=== PATIENT | female | born 1955 | race Asian ===

== ENCOUNTER → 2020-06-06 | Outpatient (CLI) | payer OTHER ==
[2020-06-06 10:39] LABS: BASOPHIL % 0.5 % (0-2); PLATELET COUNT 212 x10^3mcL (130-400); RED CELL DISTRIBUTION WIDTH 12.7 % (11.5-14.5)
[2020-06-06 10:52] LABS: ALBUMIN 4.1 g/dL (3.4-5.0); ALKALINE PHOSPHATASE 70 U/L (46-116); ALT/SGPT 26 U/L (14-59); AST/SGOT 17 U/L (15-37); BILIRUBIN TOTAL 0.4 mg/dL (0.20-1.00); CALCIUM 8.8 mg/dL (8.5-10.1); CARBON DIOXIDE 25.2 mmol/L (21-32); CHLORIDE SERUM 104 mmol/L (98-107); CHOLESTEROL 183 mg/dL (<200); CHOLESTEROL/HDL RATIO 3.3; CREATININE SERUM 0.8 mg/dL (0.6-1.0); GFR1 > 60 mL/min; GLUCOSE SERUM 102 mg/dL (74-106); HDL CHOLESTEROL 55 mg/dL (40-60); POTASSIUM SERUM 3.7 mmol/L (3.5-5.1); SODIUM SERUM 140 mmol/L (136-145); TOTAL PROTEIN, SERUM 7.7 g/dL (6.4-8.2); TRIGLYCERIDES 73 mg/dL (<150)
== END | disposition home or self-care (01) ==
LOC: MA 05-30 09:30
PROVIDERS: ATTEND Family Medicine
PROC: BH02ZZZ Plain Radiography of Bilateral Breasts (ICD-10-PCS; principal; 2020-06-06)
DX: Z00.00 Encounter for general adult medical examination without abnormal findings (principal); Z12.31 Encounter for screening mammogram for malignant neoplasm of breast
CPT/HCPCS: 77067

== ENCOUNTER → 2020-10-11 | Outpatient (CLI) | payer OTHER ==
[2020-10-11 11:11] LABS: ALBUMIN 4.1 g/dL (3.4-5.0); ALKALINE PHOSPHATASE 63 U/L (46-116); ALT/SGPT 40 U/L (14-59); AST/SGOT 19 U/L (15-37); BILIRUBIN TOTAL 0.65 mg/dL (0.20-1.00); CALCIUM 8.9 mg/dL (8.5-10.1); CARBON DIOXIDE 27.1 mmol/L (21-32); CHLORIDE SERUM 104 mmol/L (98-107); CHOLESTEROL 193 mg/dL (<200); CHOLESTEROL/HDL RATIO 3.1; CREATININE SERUM 0.9 mg/dL (0.6-1.0); GFR1 > 60 mL/min; GLUCOSE SERUM 115 mg/dL (74-106); HDL CHOLESTEROL 63 mg/dL (40-60); POTASSIUM SERUM 3.8 mmol/L (3.5-5.1); SODIUM SERUM 140 mmol/L (136-145); TOTAL PROTEIN, SERUM 7.6 g/dL (6.4-8.2); TRIGLYCERIDES 104 mg/dL (<150)
[2020-10-11 13:11] LABS: BASOPHIL % 0.4 % (0.2-1.3); PLATELET COUNT 231 x10^3mcL (179-408); RED CELL DISTRIBUTION WIDTH 12.8 % (12.3-17.7)
== END | disposition home or self-care (01) ==
LOC: LB 10:06
DX: I10 Essential (primary) hypertension (principal); E11.9 Type 2 diabetes mellitus without complications